=== PATIENT | male | born 1995 | race Caucasian/White ===

== ENCOUNTER 2018-06-30 13:32 | Emergency (ER) | payer SELFPAY | END 2018-06-30 16:07 | disposition home or self-care (01) | LOC: M ED 13:32 | DX: S70.01XA Contusion of right hip, initial encounter (principal); W22.8XXA Striking against or struck by other objects, initial encounter; Y92.89 Other specified places as the place of occurrence of the external cause; F17.210 Nicotine dependence, cigarettes, uncomplicated; Z79.891 Long term (current) use of opiate analgesic | CPT/HCPCS: 73502 ==

== ENCOUNTER 2019-09-20 12:37 | Emergency (ER) | payer SELFPAY ==
[~2019-09-20] VITALS: Ht 182.9 cm; Wt 68.2 kg
[~2019-09-20 12:37] MED LIST: IBUP80TA PO; MORP20SO PO
[2019-09-20] MEDS ORDERED: PERCOCET 5MG/325MG TAB PO ONE (13:00)
--- NOTE | 2019-09-20 13:15 | REP ---
Left index finger: Four views. History: Trauma. Findings: Four views of the left index finger are obtained through overlying glove. These demonstrate a nail gun injury. A metallic nail is seen coursing through and fracturing middle phalanx of the index finger along its distal aspect. Impression: Nail gun injury with fracture of the middle phalanx of the index finger. Electronically Signed by Rafiq Bacon MD 09/20/2019 01:06 P
[2019-09-20] MEDS ORDERED: LIDOCAINE 2% MDV 20 ML VIAL SC ONE (13:45)
[2019-09-20] MEDS ORDERED: ceFAZolin SOD 1 GM in D5W MINI-BAG PLUS 50 ML IV ONE (14:15)
--- NOTE | 2019-09-20 14:59 | ER ---
DATE OF CONSULTATION: 09/20/2019 CHIEF COMPLAINT: Nail gun injury to left index finger with a virgilio nail. HISTORY: This is a 24-year [id number] gentleman who was using a nail gun on his roof today when he accidentally impaled his left index finger from the dorsal to the volar aspect through with the middle phalanx and through his glove. The glove was removed to the best of the emergency rooms ability without pulling the nail and I was asked to evaluate him. X-ray showed evidence that the nail impaled the middle phalanx dorsal to volar, but not a grossly unstable fracture. It is just proximal to the DIP joint. His past medical history is otherwise unremarkable. He has no known drug allergies. He does not take any medications that he reports. Exam demonstrates otherwise healthy gentleman in no acute distress. Height is 6 feet, weight 68.1 kg. He is afebrile. Temperature 97.6, pulse 73, blood pressure 153/87, respirations 18. He has no other apparent injury to his left hand and has a virgilio nail, approximately an inch and a half in length that is in the dorsal aspect of the finger. There is a small amount of glove underneath it and it exits along the volar ulnar aspect of the digit just proximal to the DIP joints. There are no barbs on the exposed portion of the nail. He does report significant pain of course associated with this. He is not able to move the digit to any significant degree. His sensation he reports to be somewhat decreased throughout the fingertip probably a little more decreased along the ulnar aspect distally. He has good color and capillary refill. There is no gross dirt or contamination. X-rays as noted above. There is a nail protruding through the middle phalanx dorsal to volar with an obvious fracture, although it does not appear to be grossly unstable. IMPRESSION: Nail gun injury to left index finger. Patient is up-to-date on his tetanus. We will be giving him calf Kefzol in the emergency room. I recommended removal. He wished to ahead with this. Consent was obtained and he understood the nature of this, the risks of bleeding, infection, damage to nerves, vessels, persistent pain, stiffness, possible injury to his tendons, possible need for further surgery. He indicated that these nails do not have any glue on them, that they have barbs on some of the nails, but sometimes the minh stays attached to the other nail adjacent to it. There is very little evidence of barbs on the x-ray. Once a digital block was performed with 1% plain lidocaine he had complete relief of his pain and I was able to use a needle nose type of vice glost kiln operator pliers to gradually back the nail out. He tolerated this just fine. His finger felt pretty stable after this. I did not stress it significantly. His finger, of course, was completely numb due to the block. His color remained good. I then used a 15 blade to make a small incision dorsally and volarly in a longitudinal fashion so I could irrigate this copiously with saline. I then placed a sterile nonadherent dressing and a volar splint. X-ray is pending. RECOMMENDATIONS: 1. Kefzol 1 gram IV in the emergency room. 2. Keflex 500 q.i.d. for 10 days. 3. Pain medication something along the lines of [place]. 4. Splint, ice, elevate. 5. Followup in the orthopedic office in 3-5 days for recheck. He is familiar where we are because he has had troubles with his knee and also he has had a previous nail gun injury to his foot. The patient knows to call or return if he has increased problems or fevers or chills or any other difficulties. I anticipate immobilizing his finger at least for a couple of weeks in AlumaFoam splint and then we may have the splint be removable so he can start some range of motion. It is very difficult to tell right now whether the flexor and extensor tendons are intact, but it is not likely that the nail would have transected these. ADDENDUM: Post nail removal images do show a fracture. It does have a essentially nondisplaced intra-articular component into the DIP joint. Otherwise appears to be pretty stable. It looks like the ulnar cortex is intact. It does appear that there is one of the barbs present along the volar aspect of the bone, but it looks to be probably within the bone. I think this is likely to have occurred during the injury. My recommendation would be just to keep an eye on this. If he does have issues with ongoing infection or discomfort, etc., we could always surgically explore this through a volar approach and possibly a C-arm to try to retrieve the foreign material, but in many cases this will not present any significant issues. So for now, will cover him with antibiotics and let the fracture start to heal and watch the soft tissues. Again, he knows to contact us if he is having any issues. RAE
--- NOTE | 2019-09-20 15:09 | REP ---
Left index finger series: Four views. History: Foreign body removal. Comparison is made with earlier film showing nail gun injury to the middle phalanx. Findings: The bulk of the foreign body has been removed. There is a residual linear metallic foreign body 6 mm in density transversely oriented across the volar aspect of the fracture in the middle phalanx. There is soft tissue swelling. No malalignment. Impression: 6 mm retained metallic minh foreign body. Middle phalangeal fracture. Electronically Signed by Rafiq Bacon MD 09/20/2019 06:40 P
[2019-09-20] MEDS ORDERED: PERC5TAB12 PO (15:30)
[2019-09-20] MEDS ORDERED: KEFL500C17 PO (15:30)
[2019-09-20 15:49] VITALS: BP 131/64
== END 2019-09-20 15:50 | disposition home or self-care (01) ==
LOC: M ED 12:37
DX: S62.651B Nondisplaced fracture of middle phalanx of left index finger, initial encounter for open fracture (principal); S60.451A Superficial foreign body of left index finger, initial encounter; W29.4XXA Contact with nail gun, initial encounter; Y92.098 Other place in other non-institutional residence as the place of occurrence of the external cause; Y93.H9 Activity, other involving exterior property and land maintenance, building and construction; Y99.8 Other external cause status; F17.210 Nicotine dependence, cigarettes, uncomplicated
CPT/HCPCS: 73140; 96365; 99284; J0690